=== PATIENT | female | born 1980 | race Two or more races ===

== ENCOUNTER 2017-11-02 04:57 | Emergency (ER) | payer OTHER ==
[~2017-11-02] VITALS: Ht 165.1 cm; Wt 63.5 kg
--- NOTE | 2017-11-02 05:14 | NUR ---
DR CRAIG AT BEDSIDE FOR MSE
[2017-11-02 06:15] VITALS: BP 136/84
--- NOTE | 2017-11-02 06:15 | NUR ---
Patient discharged to home in stable conditon. Written and verbal after care instructions given. Patient verbalizes understanding of instructions. Patient left ER and walks in steady gait. accompanied by partner/
== END 2017-11-02 06:16 | disposition home or self-care (01) ==
LOC: ER 05:03
DX: J11.1 Influenza due to unidentified influenza virus with other respiratory manifestations (principal)
CPT/HCPCS: 87400; 99284; A4663

== ENCOUNTER 2018-09-06 05:46 | Emergency (ER) | payer MEDICAID ==
[~2018-09-06] VITALS: Ht 157.5 cm; Wt 59.0 kg
--- NOTE | 2018-09-06 06:10 | NUR ---
Pt. ambulated into ED w/ c/o cough and sore throat x 4 days, pt. has a low grade fever of 99.0, denies SOB/F/C/N/V/D/MCNAMARA, given blanket and pillow for comfort, flu/strep specimens collected and sent to lab,
[2018-09-06] MEDS ORDERED: BENZONATATE 100 MG CAPSULE PO ONE (06:15)
[2018-09-06] MEDS ORDERED: BENZONATATE 100 MG CAPSULE ONE (06:18)
--- NOTE | 2018-09-06 06:39 | NUR ---
Patient discharged to home in stable conditon. Written and verbal after care instructions given. Patient verbalizes understanding of instructions. Pt. d/c per MD order, d/c papers signed, all belongings w/ pt., ID band removed, ambulated off unit w/ steady gait, left in private vehicle, NAD
== END 2018-09-06 06:40 | disposition home or self-care (01) ==
LOC: ER 05:47
DX: B34.9 Viral infection, unspecified (principal)
CPT/HCPCS: 36415; 86403; 87070; 87400; A4663

== ENCOUNTER 2018-09-21 05:29 | Emergency (ER) | payer MEDICAID ==
[~2018-09-21] VITALS: Ht 165.1 cm; Wt 59.0 kg
--- NOTE | 2018-09-21 05:43 | NUR ---
Dr. Jones at bedside for MSE.
--- NOTE | 2018-09-21 06:23 | NUR ---
Patient discharged to home in stable conditon. Written and verbal after care instructions given. Patient verbalizes understanding of instructions. Patient ambulated out of ER with steady gait, no acute signs of distress, VSS, all belongings taken.
[2018-09-21 06:25] VITALS: BP 119/80
== END 2018-09-21 06:26 | disposition home or self-care (01) ==
LOC: ER 05:30
DX: J02.9 Acute pharyngitis, unspecified (principal)
CPT/HCPCS: 36415; 86403; 87070; A4663